=== PATIENT | female | born 1990 | race Hispanic/Latino ===

== ENCOUNTER 2021-02-19 23:17 | Emergency (ER) | payer MEDICAID ==
[2021-02-20] MEDS ORDERED: Acetaminophen 325 MG TAB ONE (00:32)
[2021-02-20 02:03] LABS: SARS-CoV-2 NAA Rapid Test DETECTED (NotDetected)
== END 2021-02-20 00:44 | disposition home or self-care (01) ==
LOC: ERS 23:17
DX: U07.1 COVID-19 (principal)
CPT/HCPCS: 71045; 93005; U0002

== ENCOUNTER 2021-09-24 11:45 | Emergency (ER) | payer SELFPAY ==
[2021-09-24 12:36] LABS: #Eosinphils 0.4 thou/uL (0.0-0.7); #Lymphocytes 1.4 thou/uL (1.20-3.40); #Monocytes 0.7 thou/uL (0.11-0.59); #Neutrophils 5.6 thou/uL (1.40-6.50); %Basophils 0.2 % (0.0-1.0); %Eosinophils 5.1 % (0.0-10.0); %Lymphocytes 17.5 % (21.0-51.0); %Monocytes 8.3 % (0.0-10.0); %Neutrophils 68.9 % (42.0-75.0); Hemoglobin 4.6 g/dL (12.0-16.0); Mean Corpuscular HGB CONC 27.8 g/dL (32.0-36.0); Mean Corpuscular Hemoglobin 15.9 pg (27.0-31.0); Mean Platelet Volume 4.8 fL (7.4-10.4); Platelet Count 343 thou/uL (130-400); RBC Distribution Width 26.7 % (11.5-14.5); Red Blood Cell (RBC) Count 2.87 mill/uL (4.20-5.40); White Blood Cell (WBC) Count 8.1 thou/uL (4.8-10.8)
[2021-09-24 12:38] LABS: ALT (SGPT) 12 U/L (8-55); AST (SGOT) 17 U/L (5-34); Albumin 3.9 g/dL (3.5-5.0); Alkaline Phosphatase 59 U/L (40-110); Anion Gap 10 mmol/L (10-20); BUN (Urea Nitrogen) 11 mg/dL (7.0-18.7); Bilirubin, Total 0.3 mg/dL (0.2-1.2); Calc. Creatinine Clearance 0 mL/min (70-130); Calcium 8.5 mg/dL (7.8-10.44); Carbon Dioxide 22 mmol/L (22-29); Chloride 105 mmol/L (98-107); Globulin 2.9 g/dL (2.4-3.5); Glucose 104 mg/dL (70-105); Protein, Total 6.8 g/dL (6.0-8.3); Sodium 133 mmol/L (136-145)
[2021-09-24 13:06] LABS: Thyroid Stimulating Hormone 1.9118 uIU/mL (0.35-4.94)
[2021-09-24 13:11] LABS: BHCG - Serum Negative (NEGATIVE); Pregs Control Background? CLEAR/WHITE (CLR/WHITE); Pregs Control Bar Appear? YES (CONTROL BAR)
[2021-09-24] MEDS ORDERED: Tranexamic Acid 1,000 MG/10 ML VIAL ONE (14:07)
== END 2021-09-24 15:49 | disposition short-term general hospital (02) ==
LOC: ERS 11:45
DX: N93.9 Abnormal uterine and vaginal bleeding, unspecified (principal); D64.9 Anemia, unspecified
CPT/HCPCS: 36415; 36430; 51701; 71045; 80053; 84443; 84484; 84703; 85025; 86850; 86900; 86901; 93005; 94760; 96374; P9016